=== PATIENT | male | born 1950 | race Caucasian/White ===

== ENCOUNTER 2018-01-19 07:17 | Outpatient (CLI) | payer MEDICARE ==
--- NOTE | 2018-01-19 09:19 | ULT ---
ULTRASOUND ABDOMEN: Date: 01/19/18 HISTORY: Abdominal pain. COMPARISON: None. FINDINGS: Pancreas not well seen. Visualized portion of aorta and IVC are unremarkable. The mid aorta measures 2.6 cm in transverse dimension. There is abnormally increased hepatic echotext ure. Liver measures 16.0 cm in length. Portal veins patient with antegrade flow. Gallbladder wall thickness is normal. No pericholecystic fluid. Common bile duct is normal. Right kidney measures 11.8 x 6.2 x 7.0 cm. Left kidney measures 12.8 x 5.8 x 5.9 cm. No mass, hydrone phrosis, or abnormal calcifications. Spleen measures 10.0 cm in length. IMPRESSION: Increased hepatic echotexture suggesting steatosis. POS: [facility]
== END 2018-01-19 07:18 | disposition home or self-care (01) ==
LOC: SCSULT 07:17
PROVIDERS: ATTEND Internal Medicine
DX: R10.9 Unspecified abdominal pain (principal); K76.9 Liver disease, unspecified
CPT/HCPCS: 76700

== ENCOUNTER 2018-02-23 07:45 | Outpatient (CLI) | payer MEDICARE ==
--- NOTE | 2018-02-23 09:34 | CT ---
LOW-DOSE CT LUNG CANCER SCREENING EVALUATION WITHOUT IV CONTRAST: INDICATION: A 67-year-old male with a personal history of nicotine dependent. A 20-25 year history of smoking 2 packs per day. The patient quit smoking 15 years ago. The patient denied shortness of breath or ricardo st pain. FINDINGS: No suspicious pulmonary nodules are evident. There is moderate scattered centrilobular and paraseptal emphysema. There is postsurgical change of a prior CABG. Visualized upper abdomen is unremarkable for acute abn ormality. No definite acute osseous abnormality is evident. There is scattered degenerative and osteoarthritic change. IMPRESSION: Lung RADS category 1 - negative. Recommend annual low-dose CT cancer screening. POS: [facility]
== END 2018-02-23 07:46 | disposition home or self-care (01) ==
LOC: CT 07:45
PROVIDERS: ATTEND Internal Medicine
DX: Z87.891 Personal history of nicotine dependence (principal)
CPT/HCPCS: G0297

== ENCOUNTER 2019-01-20 08:37 | Outpatient (CLI) | payer MEDICARE ==
[2019-01-20 15:14] LABS: Prothrombin Time 13.1 SEC (12.0-14.7)
[2019-01-20 15:15] LABS: PTT 30.5 SEC (22.9-36.1)
[2019-01-20 15:20] LABS: Bacteria/HPF None Seen HPF (None Seen); Bilirubin Negative (Negative); Blood, Urine Negative (Negative); Clarity Clear (Clear); Glucose, Urine (Dipstick) Normal (Negative); Leukocyte Negative Leu/uL (Negative); Nitrite Negative (Negative); Protein, Urine (Dipstick) Negative (Neg-Trace); RBC/HPF 0-3 HPF (0-3); Squamous Epithelial None Seen HPF (0-3); Urobilinogen Normal mg/dL (Less than 2); WBC/HPF 0-3 HPF (0-3)
[2019-01-20 15:30] LABS: Anion Gap 16 mmol/L (10-20); BUN (Urea Nitrogen) 14 mg/dL (8.4-25.7); Calc. Creatinine Clearance 0 mL/min (70-130); Calcium 10.2 mg/dL (7.8-10.44); Carbon Dioxide 27 mmol/L (23-31); Chloride 102 mmol/L (98-107); Estimated GFR-MDRD 85; Glucose 90 mg/dL (80-115); Potassium 4.5 mmol/L (3.5-5.1); Sodium 140 mmol/L (136-145)
[2019-01-20 15:32] LABS: Hemoglobin 15.1 g/dL (14.0-18.0); Mean Corpuscular HGB CONC 35.7 g/dL (32.0-36.0); Mean Corpuscular Hemoglobin 36.3 pg (27.0-31.0); Mean Platelet Volume 11.5 fL (7.4-10.4); Platelet Count 103 thou/uL (130-400); RBC Distribution Width 12.5 % (11.5-14.5); Red Blood Cell (RBC) Count 4.17 mill/uL (4.70-6.10); White Blood Cell (WBC) Count 6.1 thou/uL (4.8-10.8)
== END 2019-01-20 08:38 | disposition home or self-care (01) ==
LOC: LABBT 08:37
PROVIDERS: ATTEND Urology
DX: Z01.812 Encounter for preprocedural laboratory examination (principal); Z12.5 Encounter for screening for malignant neoplasm of prostate; N40.1 Benign prostatic hyperplasia with lower urinary tract symptoms; N52.9 Male erectile dysfunction, unspecified; I25.10 Atherosclerotic heart disease of native coronary artery without angina pectoris; R35.0 Frequency of micturition; G45.9 Transient cerebral ischemic attack, unspecified
CPT/HCPCS: 80048; 81001; 85027; 85610; 85730; 87086

== ENCOUNTER 2019-02-02 05:36 | Day surgery (SDC) | payer MEDICARE ==
[2019-01-20 14:07] VITALS: BMI 33.4
[2019-02-02] MEDS ORDERED: Levofloxacin 500 mg/D5W 100 ml Premix Bag ONE (07:05)
[2019-02-02] MEDS ORDERED: Fentanyl 100 MCG/2 ML VIAL ONE (07:07)
[2019-02-02] MEDS ORDERED: Phenazopyridine HCl 97.5 MG TABLET ONE (09:05)
--- NOTE | 2019-02-02 11:38 | OP ---
DATE OF PROCEDURE: 02/02/2019 PREOPERATIVE DIAGNOSIS: A 68-year-old male with benign prostatic hyperplasia symptoms. POSTOPERATIVE DIAGNOSIS: A 68-year-old male with benign prostatic hyperplasia symptoms. PROCEDURES PERFORMED: Cystoscopy, UroLift urethral implant x7. ANESTHESIA: LMA. COMPLICATIONS: None apparent. DISPOSITION: To recovery room in stable condition. INDICATIONS FOR PROCEDURE: Mr. Silvestre is a 68-year-old male with history of BPH, he desired to proceed with surgical intervention for BPH symptoms, as he would like to come off his prostate medications, alternative options including continuing medical observation, TURP versus UroLift reviewed. He desired minimally invasive approach due to less sexual side effects. Risks and complications of the procedure were reviewed with him in detail including, but not limited to, chronic pain, bladder neck contracture, persistent BPH symptoms, migration of urethral implant , resulting in chronic pain, urethral, bladder stone. Questions encouraged and answered, and he desired to proceed without reservation. DESCRIPTION OF PROCEDURE: After an informed consent was signed, the patient was taken to the operating room, placed in a dorsal lithotomy position with the genital area prepped and draped in the usual surgical sterile fashion. We first performed the cystoscopy with a 21-Mosotho scope, which demonstrated bilobar hyperplasia of the prostate moderately to severe obstructing. UOs were identified away from the bladder neck about 3 to 4 mm. Bladder demonstrated trabeculation consistent with chronic outlet obstruction. At this time, we delivered the UroLift cystoscope with a 0-degree lens 20-Mosotho into the bladder. UroLift delivery device was placed , and the first treatment site was on the patient's left side about 1.5 cm distal to the bladder neck. The tip of the delivery device was then angled laterally about 20 degrees in a position to compress the lateral lobe. Trigger was pulled therefore deploying the needle containing the implant through the prostate. Needle was then retracted allowing the end of the implant to be delivered to the capsular surface of the prostate. Implant was then tensioned to assure capsular seeding and removal of the slack monofilament. Device was then angled back toward the midline and slowly advanced proximally about 3 to 4 mm until cystoscopic verification of the monofilament being centered to the delivery bay. The urethral end piece was then affixed to the monofilament therefore tailoring to the size of the implant. Excess filament was then severed. Delivery device was then re-advanced into the bladder. We repeated this maneuver, until the obstructive component of the prostate resolved with a nice anterior channel. Total of 7 implants were provided. At the end of the procedure, we did survey the bladder using a 30- and a 70-degree lens, which demonstrated no evidence of inadvertent delivery of the implant into the bladder neck or the bladder surface. Bladder was completely emptied. I was able to pass a 16-Mosotho in and out without significant issues. Catheter was not left in. He will undergo voiding trial postop. If able to void with no significant hematuria of concern, will be discharged. He was discharged with ciprofloxacin for course of 5 days and Azo p.r.n. He is to hold his Plavix until followup appointment with me next week. Job ID: [id number] [facility]
[2019-02-02] MEDS ORDERED: PROPOFOL 200 MG/20 ML VIAL ONE (12:37)
[2019-02-02] MEDS ORDERED: Ketorolac Tromethamine 30 MG/ML VIAL ONE (12:37)
[2019-02-02] MEDS ORDERED: Ondansetron PF 4 MG/2 ML Vial ONE (12:37)
[2019-02-02] MEDS ORDERED: Lidocaine 1% PF 5 ML VIAL ONE (12:37)
[2019-02-02] MEDS ORDERED: PHENYLEPHRINE-NS 100 MCG/ML 10 ML SYRINGE ONE (12:37)
[2019-02-02] MEDS ORDERED: Dexamethasone 20 MG/5 ML VIAL ONE (12:37)
== END 2019-02-02 13:57 | disposition home or self-care (01) ==
LOC: SDC 05:36
PROVIDERS: ATTEND Urology
PROC: 0T7D8DZ Dilation of Urethra with Intraluminal Device, Via Natural or Artificial Opening Endoscopic (ICD-10-PCS; principal; 2019-02-02)
DX: N40.1 Benign prostatic hyperplasia with lower urinary tract symptoms (principal); R35.0 Frequency of micturition; N52.9 Male erectile dysfunction, unspecified; I25.10 Atherosclerotic heart disease of native coronary artery without angina pectoris; I10 Essential (primary) hypertension; I25.2 Old myocardial infarction; E78.5 Hyperlipidemia, unspecified; G45.9 Transient cerebral ischemic attack, unspecified; Z79.899 Other long term (current) drug therapy; Z87.891 Personal history of nicotine dependence
CPT/HCPCS: 51798; C1889; J1100; J1885; J1956; J2001; J2405; J2704; J3010

== ENCOUNTER 2019-06-07 08:28 | Outpatient (CLI) | payer MEDICARE ==
--- NOTE | 2019-06-07 09:29 | CT ---
EXAM: CT chest without contrast per low-dose cancer screening protocol HISTORY: History of smoking and nicotine dependence COMPARISON: None TECHNIQUE: Multiple contiguous axial images were obtained in a CT of the chest without contrast per l ow-dose cancer screening protocol. Sagittal and coronal reformats were performed. FINDINGS: Pulmonary nodules: No suspicious pulmonary nodules are seen. No focal infiltrates are seen. Pleural space: No pneumothorax or pleural effusion are seen. Heart: The heart is normal in size. Calcifications are seen in the coronary arteries and aorta. Mediastinum: No hilar or mediastinal lymphadenopathy appreciated on this limited noncontrast examinat ion. Bones: Degenerative changes in the spine.. Visualized subdiaphragmatic structures: Unremarkable. IMPRESSION: Lung RADS category 1-negative.
== END 2019-06-07 08:29 | disposition home or self-care (01) ==
LOC: CT 08:28
PROVIDERS: ATTEND Internal Medicine
DX: Z12.2 Encounter for screening for malignant neoplasm of respiratory organs (principal); Z87.891 Personal history of nicotine dependence
CPT/HCPCS: G0297

== ENCOUNTER 2020-02-24 10:00 | Outpatient (CLI) | payer MEDICARE ==
--- NOTE | 2020-02-24 10:44 | ULT ---
GALLBLADDER ULTRASOUND: HISTORY: Right upper quadrant abdominal pain FINDINGS: The visualized portions of the liver (left lobe not well seen) demonstrates increased echogenicity wi thout focal mass or intrahepatic biliary ductal dilatation. No gallstones, gallbladder wall thickening or pericholecystic fluid are seen. There is trace amount o f sludge in the gallbladder. The right kidney appears normal. The pancreas is not visualized due to overlying bowel gas. The common duct [id number] in diameter. No free fluid is seen in the Arango's pouch. IMPRESSION: 1. Fatty liver 2. Gallbladder sludge without evidence of cholelithiasis
== END 2020-02-24 10:01 | disposition home or self-care (01) ==
LOC: SCSULT 10:00
PROVIDERS: ATTEND Internal Medicine
DX: K76.0 Fatty (change of) liver, not elsewhere classified (principal); K82.8 Other specified diseases of gallbladder
CPT/HCPCS: 76705

== ENCOUNTER 2020-06-13 13:32 | Outpatient (CLI) | payer MEDICARE ==
--- NOTE | 2020-06-13 15:08 | CT ---
Exam: Noncontrast chest CT; CT lung scan low dose HISTORY:Lung screening. Former smoker 2 packs a day. 15 years ago. COMPARISON: 06/07/2019 TECHNIQUE: Low-dose screening lung CT is performed utilizing institutional protocol FINDINGS: Lung screening specific (LUNG-RADS): No suspicious pulmonary nodules are seen. No focal infiltrates a re seen. Potential significant incidentals (lung RADS category S): None Pulmonary incidentals:Minimal scarring involving both lower lobes. Other incidentals: Scattered coronary disease. Scattered atherosclerosis. Multilevel degenerative tay nges with vacuum disc phenomenon and osteophyte formation. IMPRESSION: 1. Lung RADS 1, negative exam 2. Lung Rask category S: Negative. No new or unknown potential significant incidental findings requir ing urgent additional evaluation 3. Other incidentals as above. Recommendation: Continued routine annual low-dose lung screening CT. Follow-up in one year.
== END 2020-06-13 13:33 | disposition home or self-care (01) ==
LOC: BICCT 13:32
PROVIDERS: ATTEND Internal Medicine
DX: Z12.2 Encounter for screening for malignant neoplasm of respiratory organs (principal); Z87.891 Personal history of nicotine dependence; I25.10 Atherosclerotic heart disease of native coronary artery without angina pectoris; I70.0 Atherosclerosis of aorta; J98.4 Other disorders of lung; M47.819 Spondylosis without myelopathy or radiculopathy, site unspecified; M25.70 Osteophyte, unspecified joint
CPT/HCPCS: G0297

== ENCOUNTER 2020-06-22 07:32 | Outpatient (CLI) | payer MEDICARE ==
[2020-06-22 11:58] LABS: #Monocytes 0.5 10x3/uL (0.0-1.1); %Basophils 0.2 % (0.0-2.0); %Eosinophils 0.4 % (0.0-6.0); %Lymphocytes 21.7 % (18.0-47.0); %Monocytes 10.5 % (0.0-10.0); %Neutrophils 66.5 % (40.0-75.0); ALT (SGPT) 23 U/L (8-55); AST (SGOT) 22 U/L (5-34); Albumin 4.3 g/dL (3.4-4.8); Alkaline Phosphatase 80 U/L (40-110); Anion Gap 14 mmol/L (10-20); BUN (Urea Nitrogen) 16 mg/dL (8.4-25.7); Calc. Creatinine Clearance 0 mL/min (70-130); Calcium 9.2 mg/dL (7.8-10.44); Carbon Dioxide 28 mmol/L (23-31); Chloride 102 mmol/L (98-107); Globulin 2.5 g/dL (2.4-3.5); Glucose 96 mg/dL (83-110); Hemoglobin 15.4 g/dL (14.0-18.0); Mean Corpuscular HGB CONC 34.6 G/DL (32.0-36.0); Mean Corpuscular Hemoglobin 35.5 PG (27.0-33.0); Mean Corpuscular Volume 102.5 fl (80.0-100.0); Platelet Count 117 10x3/uL (130-400); Potassium 4.3 mmol/L (3.5-5.1); Protein, Total 6.8 g/dL (5.8-8.1); RBC Distribution Width 12.9 % (11.5-14.5); Red Blood Cell (RBC) Count 4.34 10x6/uL (4.40-5.80); Sodium 140 mmol/L (136-145); White Blood Cell (WBC) Count 4.5 10x3/uL (4.5-11.0)
[2020-06-22 13:05] LABS: Platelet Morphology Comment Appears Decreased; RBC Morphology Normal
[2020-06-22 22:15] LABS: SARS-CoV-2 PCR by NAA Not Detected (NotDetected)
== END 2020-06-22 07:33 | disposition home or self-care (01) ==
LOC: LABBT 07:32
PROVIDERS: ATTEND Internal Medicine Cardiovascular Disease
DX: Z01.812 Encounter for preprocedural laboratory examination (principal); Z20.822 Contact with and (suspected) exposure to COVID-19
CPT/HCPCS: 80053; 85025; U0003; U0005; 87635

== ENCOUNTER → 2020-06-26 | Day surgery (SDC) | payer MEDICARE ==
[2020-06-25 11:08] VITALS: BMI 33.1
[~2020-06-26] MED LIST: Fentanyl 100 MCG/2 ML VIAL ONE; Iopamidol 370 76% 100 ML VIAL ONE; Midazolam HCl 2 mg/2 ml Vial ONE
== END ==
LOC: CCL 05:57
PROVIDERS: ATTEND Internal Medicine Cardiovascular Disease
PROC: 4A023N7 Measurement of Cardiac Sampling and Pressure, Left Heart, Percutaneous Approach (ICD-10-PCS; principal; 2020-06-26)
PROC: B2111ZZ Fluoroscopy of Multiple Coronary Arteries using Low Osmolar Contrast (ICD-10-PCS; 2020-06-26)
PROC: B2181ZZ Fluoroscopy of Left Internal Mammary Bypass Graft using Low Osmolar Contrast (ICD-10-PCS; 2020-06-26)
PROC: B2171ZZ Fluoroscopy of Right Internal Mammary Bypass Graft using Low Osmolar Contrast (ICD-10-PCS; 2020-06-26)
PROC: B2121ZZ Fluoroscopy of Single Coronary Artery Bypass Graft using Low Osmolar Contrast (ICD-10-PCS; 2020-06-26)
DX: I25.10 Atherosclerotic heart disease of native coronary artery without angina pectoris (principal); I25.82 Chronic total occlusion of coronary artery; I49.9 Cardiac arrhythmia, unspecified; I25.5 Ischemic cardiomyopathy; E78.5 Hyperlipidemia, unspecified; I10 Essential (primary) hypertension; K21.9 Gastro-esophageal reflux disease without esophagitis; I25.2 Old myocardial infarction; D68.2 Hereditary deficiency of other clotting factors; Z86.73 Personal history of transient ischemic attack (TIA), and cerebral infarction without residual deficits; Z79.02 Long term (current) use of antithrombotics/antiplatelets; Z79.82 Long term (current) use of aspirin; Z79.899 Other long term (current) drug therapy; Z95.1 Presence of aortocoronary bypass graft
CPT/HCPCS: 36415; 76942; 83735; 93455; 99152; J1644; J2250; J3010; Q9967

== ENCOUNTER 2021-03-01 10:47 | Outpatient (CLI) | payer MEDICARE | END 2021-03-01 10:48 | disposition home or self-care (01) | LOC: CTENTCT 10:47 | PROVIDERS: ATTEND Specialist | DX: J32.9 Chronic sinusitis, unspecified (principal) | CPT/HCPCS: 70486 ==

== ENCOUNTER 2021-10-08 09:03 | Outpatient (CLI) | payer MEDICARE | END 2021-10-08 09:04 | disposition home or self-care (01) | LOC: ULT 09:03 | PROVIDERS: ATTEND Internal Medicine | DX: K82.8 Other specified diseases of gallbladder (principal); K76.0 Fatty (change of) liver, not elsewhere classified | CPT/HCPCS: 76705 ==

== ENCOUNTER 2022-03-05 09:12 | Outpatient (CLI) | payer MEDICARE | END 2022-03-05 09:13 | disposition home or self-care (01) | LOC: NM 09:12 | PROVIDERS: ATTEND Internal Medicine Gastroenterology | DX: K21.9 Gastro-esophageal reflux disease without esophagitis (principal); G45.9 Transient cerebral ischemic attack, unspecified; D69.6 Thrombocytopenia, unspecified; R10.11 Right upper quadrant pain | CPT/HCPCS: 78227; A9537 ==

== ENCOUNTER 2023-01-28 08:30 | Outpatient (CLI) | payer MEDICARE | END 2023-01-28 08:31 | disposition home or self-care (01) | LOC: SCSRAD 08:30 | PROVIDERS: ATTEND Internal Medicine | DX: M79.645 Pain in left finger(s) (principal); M79.671 Pain in right foot; M18.12 Unilateral primary osteoarthritis of first carpometacarpal joint, left hand ==

== ENCOUNTER 2023-06-19 09:38 | Outpatient (CLI) | payer MEDICARE | END 2023-06-19 09:39 | disposition home or self-care (01) | LOC: ULT 09:38 | PROVIDERS: ATTEND Internal Medicine | DX: D69.6 Thrombocytopenia, unspecified (principal); I71.40 Abdominal aortic aneurysm, without rupture, unspecified | CPT/HCPCS: 76700 ==

== ENCOUNTER 2023-10-30 08:07 | Day surgery (SDC) | payer MEDICARE ==
[2023-10-30 08:35] LABS: Hematocrit 43.4 % (42.0-52.0); Hemoglobin 15.4 g/dL (14.0-18.0); Mean Corpuscular HGB CONC 35.5 g/dL (32.0-36.0); Mean Corpuscular Hemoglobin 36.5 pg (27.0-31.0); Mean Corpuscular Volume 102.8 fL (78.0-98.0); Platelet Count 45 10x3/uL (130-400); RBC Distribution Width 13.8 % (11.5-14.5); Red Blood Cell (RBC) Count 4.22 mill/uL (4.70-6.10)
[2023-10-30 08:49] LABS: PTT 30.7 sec (22.9-36.1); Prothrombin Time 13.1 sec (12.0-14.7)
[2023-10-30 09:02] LABS: Band 1 % (5-11); Lymphocytes 16 % (21-51); Macrocytosis SLIGHT = 6-15 cells HPF (0-5); Monocytes 10 % (0-10); Neutrophil 72 % (42-75); Ovalocytes SLIGHT = 2-5 cells HPF (0-1); Platelet Adequacy Comment Platelets Decreased; Polychromasia SLIGHT = 2-3 cells HPF (0-2); Reactive Lymphocytes 1 % (0-10)
[2023-10-30 09:42] VITALS: BP 140/80; TEMP 97.9
[2023-10-30] MEDS ORDERED: Lidocaine 1% PF 5 ML VIAL ONE ×2 (09:47→09:49)
[2023-10-30] MEDS ORDERED: fentaNYL 50 mcg/mL 1 mL Vial ONE (09:48)
[2023-10-30] MEDS ORDERED: Midazolam HCl 2 mg/2 ml Vial ONE (09:48)
[2023-10-30] MEDS ORDERED: Sodium Bicarbonate 2.5 MEQ/5 ML SDV ONE (09:49)
[2023-11-12 14:32] LABS: Reference Lab Name NEOGENOMICS
[2023-11-15 15:41] LABS: Reference Lab Name NEOGENOMICS
== END 2023-10-30 12:30 | disposition home or self-care (01) ==
LOC: CT 08:07
PROVIDERS: ATTEND Internal Medicine Hematology & Oncology
PROC: 079T3ZX Drainage of Bone Marrow, Percutaneous Approach, Diagnostic (ICD-10-PCS; principal; 2023-10-30)
DX: D72.818 Other decreased white blood cell count (principal); D69.59 Other secondary thrombocytopenia
CPT/HCPCS: 38222; 77012; 85025; 85097; 85610; 85730; J2250; J3010; 36415; 88184; 88185; 88189; 88237; 88264; 88280; 88305; 88311; 88313

== ENCOUNTER 2024-04-29 11:41 | Outpatient (CLI) | payer MEDICARE | END 2024-04-29 11:42 | disposition home or self-care (01) | LOC: BICRAD 11:41 | PROVIDERS: ATTEND Internal Medicine | DX: M25.572 Pain in left ankle and joints of left foot (principal); E66.9 Obesity, unspecified; M19.072 Primary osteoarthritis, left ankle and foot ==